=== PATIENT | male | born 1955 | race Asian ===

== ENCOUNTER 2020-03-24 20:40 | Emergency (ER) | payer OTHER ==
[~2020-03-24] VITALS: Ht 170.2 cm; Wt 58.5 kg
[2020-03-24 20:48] VITALS: Ht 170.2 cm; Wt 58.5 kg
[2020-03-24 22:51] LABS: PLATELET COUNT 208 x10^3mcL (130-400); RED CELL DISTRIBUTION WIDTH 12.2 % (11.5-14.5)
[2020-03-24 22:56] LABS: CALCIUM 8.9 mg/dL (8.5-10.1); CARBON DIOXIDE 25.8 mmol/L (21-32); CHLORIDE SERUM 101 mmol/L (98-107); CREATININE SERUM 0.7 mg/dL (0.7-1.3); GFR1 > 60 mL/min; GLUCOSE SERUM 294 mg/dL (74-106); POTASSIUM SERUM 3.5 mmol/L (3.5-5.1); SODIUM SERUM 138 mmol/L (136-145)
[2020-03-24 22:59] LABS: BASOPHIL % 0 % (0-2)
[2020-03-24 23:01] LABS: ALBUMIN 3.6 g/dL (3.4-5.0); ALKALINE PHOSPHATASE 70 U/L (46-116); ALT/SGPT 34 U/L (16-63); AST/SGOT 19 U/L (15-37); BILIRUBIN TOTAL 0.54 mg/dL (0.20-1.00); C REACTIVE PROTEIN 11.5 mg/dL (<=0.9); TOTAL PROTEIN, SERUM 7.9 g/dL (6.4-8.2)
[2020-03-25 06:58] VITALS: BP 127/67
== END 2020-03-25 06:58 | disposition short-term general hospital (02) ==
LOC: ED 20:40
PROVIDERS: Emergency Medicine
DX: K12.2 Cellulitis and abscess of mouth (principal); K04.7 Periapical abscess without sinus; A41.9 Sepsis, unspecified organism; R25.2 Cramp and spasm
CPT/HCPCS: J0295; J3370; J7030; J7042; J7050